=== PATIENT | male | born 1995 | race Two or more races ===

== ENCOUNTER 2024-02-16 11:53 | Emergency (ER) | payer OTHER ==
[~2024-02-16] VITALS: Ht 175.3 cm; Wt 81.6 kg
[2024-02-16] MEDS ORDERED: 0.9 % SODIUM CHLORIDE 1,000 ML IV STA (12:39)
[2024-02-16] MEDS ORDERED: ONDANSETRON HCL 2 MG/ML VIAL IV STA (12:40)
[2024-02-16] MEDS ORDERED: TAMSULOSIN HCL 0.4 MG CAP PO ONE ×2 (12:45→12:51)
[2024-02-16] MEDS ORDERED: MEPERIDINE HCL/PF 50 MG/ML VIAL IM ONE (12:45)
[2024-02-16] MEDS ORDERED: ONDANSETRON HCL 2 MG/ML VIAL ONE (12:51)
[2024-02-16 13:27] LABS: HEMATOCRIT 46.2 % (39.0-48.0); HEMOGLOBIN 15.8 g/dL (13-16.00); MEAN CORPUSCULAR HEMOGLOBIN 28.7 pg (27.00-32.0); MEAN CORPUSCULAR HGB CONC 34.2 g/dl (32.0-36.0); PLATELET COUNT 244 K/uL (150-450); RED CELL DISTRIBUTION WIDTH 14.1 % (11.5-14.5)
[2024-02-16 13:45] LABS: CALCIUM 10.1 mg/dL (8.5-10.1); CREATININE SERUM 1.28 mg/dL (0.70-1.30); GFR 66.92; POTASSIUM 4.07 mEq/L (3.5-5.1)
[2024-02-16 15:14] LABS: PH,URINE 7.5 (5.0-8.0); URINE APPEARANCE Clear; URINE BILIRRUBIN Negative (NEGATIVE); URINE BLOOD Moderate; URINE COLOR Yellow; URINE GLUCOSE Negative (NEGATIVE); URINE LEUKOCYTE Trace; URINE NITRATE Negative; URINE PROTEIN Trace (NEGATIVE)
[2024-02-16 15:21] LABS: URINE BACTERIA 18.8 uL (0.0-1933); URINE EPITHELIAL CELLS 2.6 uL (0.0-38.8); URINE RBC 124.1 uL (0.0-20.8); URINE WBC 13.1 uL (0.0-23.2)
== END 2024-02-16 15:46 | disposition home or self-care (01) ==
LOC: ER 11:54
PROVIDERS: Emergency Medicine
DX: N20.0 Calculus of kidney (principal); R10.9 Unspecified abdominal pain